=== PATIENT | male | born 1960 ===

== ENCOUNTER 2021-04-07 13:37 | Day surgery (SDC) | payer OTHER ==
[~2021-04-07] VITALS: Ht 180.3 cm; Wt 82.7 kg
[~2021-04-07 13:37] MED LIST: GABA300 PO; TAMS.4ER PO; XARELTO20 MG PO
[2021-04-07] MEDS ORDERED: OMEP20ER (13:55)
== END 2021-04-07 16:10 | disposition home or self-care (01) ==
LOC: ORSCSDS 13:37
PROVIDERS: Student in an Organized Health Care Education/Training Program
PROC: 0DB48ZX Excision of Esophagogastric Junction, Via Natural or Artificial Opening Endoscopic, Diagnostic (ICD-10-PCS; principal; 2021-04-07 14:45)
DX: K22.70 Barrett's esophagus without dysplasia (principal); K22.2 Esophageal obstruction; R13.10 Dysphagia, unspecified; Z86.718 Personal history of other venous thrombosis and embolism; Z86.711 Personal history of pulmonary embolism; Z79.01 Long term (current) use of anticoagulants; Z79.899 Other long term (current) drug therapy
CPT/HCPCS: 88305; 88312; J2704; J7120

== ENCOUNTER → 2025-07-01 | Outpatient (CLI) | payer OTHER ==
[~2025-07-01] MED LIST changes: +Amitriptyline H10 MG PO; +Aspir 8181 MG PO; +FINA5 PO; +Jantoven5 MG PO; +OMEP20ER PO; +WARF5 PO
== END ==
LOC: LAB SHORT 14:49 → LAB 14:49
DX: N41.0 Acute prostatitis (principal); N41.1 Chronic prostatitis
CPT/HCPCS: 88305